=== PATIENT | female | born 1940 | race Caucasian/White ===

== ENCOUNTER 2024-02-03 05:26 | Observation (INO) ==
--- NOTE | 2024-01-29 16:09 | Anesthesiology Consultation ---
Date of Service January 29, 2024 Assessment & Plan (1) Encounter for pre-operative examination: - Infectious disease screening: Per assessment on 01/29/24: No known infectious disease contacts or current infectious disease symptoms. No noted recent Covid positive test result. - Preop testing: No preop EKG received. Will order EKG for DOS. Chart Review Chart Review: Acceptable Risk for Surgery (pending preop EKG DOS) and Patient NOT seen in Pre Admission Testing History Surgery Operation Date: 02/03/24 07:00 Proposed Procedures p Right Breast Mastectomy - DO rafi Ro Right First Stage Immediate Breast Reconstruction with Tissue Mica Builder and Acellular Dermal Matrix - Pilar Pop MD Height/Weight Height: 5 ft 5 in Weight: 64.41 kg Allergies Allergy/AdvReac Type Severity Reaction Status Date / Time Penicillins Allergy Mild Hallucinati Verified 01/21/24 13:13 ng azithromycin AdvReac Mild Gastrointestinal Verified 01/21/24 13:13 Upset ciprofloxacin [From Cipro] AdvReac Mild Gastrointestinal Verified 01/21/24 13:13 Upset clindamycin AdvReac Mild Gastrointestinal Verified 01/21/24 13:13 Upset iohexol [From Omnipaque] AdvReac Mild Gastrointestinal Verified 01/21/24 13:13 Upset Medications Home Medications Medication Instructions Recorded Confirmed Last Taken biotin 1 mg tablet 1 mg PO QAM 12/31/23 01/21/24 Unknown cholecalciferol (vitamin D3) 75 25 mcg PO QAM 12/31/23 01/21/24 Unknown mcg (3,000 unit) tablet coenzyme Q10 75 mg capsule (Ultra 200 mg PO QAM 12/31/23 01/21/24 Unknown CoQ10) glucosamine HCl 500 mg tablet 1,500 mg PO QPM 12/31/23 01/21/24 Unknown simvastatin 20 mg tablet 20 mg PO QPM 12/31/23 01/21/24 Unknown ashwagandha root extract 300 mg 300 mg PO QAM PRN Anxiety 01/20/24 01/21/24 Unknown capsule cephalexin 500 mg capsule 500 mg PO TID 7 days #21 caps 01/20/24 01/20/24 Unknown magnesium 200 mg tablet 400 mg PO QPM 01/20/24 01/21/24 Unknown multivitamin 1 tab PO QAM 01/20/24 01/21/24 Unknown oxycodone-acetaminophen 5 mg-325 1 tab PO Q4H PRN pain 3 days #18 01/20/24 01/20/24 Unknown mg tablet (Percocet) tabs Lactobacillus acidophilus 1,000 mmu cells PO QAM PRN 01/21/24 01/21/24 Unknown Heartburn calcium citrate 100 mg-vit D3 1 tab PO QAM 01/21/24 01/21/24 Unknown 1,000 unit-isoflavonone no2 80 mg tablet cetirizine 10 mg tablet 10 mg PO DAILY PRN allergies 01/21/24 01/21/24 Unknown denosumab 60 mg/mL subcutaneous 60 mg subcut Q6M 01/21/24 01/21/24 09/17/23 syringe (Prolia) promethazine 50 mg tablet 50 mg PO DAILY PRN Motion Sickness 01/21/24 01/21/24 Unknown Past Medical History Medical History DCIS (ductal carcinoma in situ) of breast x3, XRT - 2008, 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 Hyperlipemia Osteopenia Post-nasal drip Past Family History Family History Other Cancer Past Surgical History Surgical History History of appendectomy History of hysterectomy (~1975) Hx of foot surgery Right Hx of lumpectomy Right x2 Nausea and vomiting after administration of anesthetic agent "extremely sick & threw up for days" with previous surgeries Social History Smoking Status: Former smoker Smoking cigarettes per day: 5 cigs/day Smoking End Date: Quit 50 years ago Hx Alcohol Use: No Hx Substance Use: No substance use type: does not use Lab Results Anesthesia Preop Results Results Anesthesia Widget: WBC 7.40 K/ul (4.8-10.8) 01/20/24 Hgb 14.2 g/dl (12.0-16.0) 01/20/24 Hct 42.0 % (37.0-47.0) 01/20/24 Plt 225 K/uL (130-400) 01/20/24 Na 141 mmol/L (136-145) 01/20/24 K 3.9 mmol/L (3.5-5.1) 01/20/24 Cl 108 mmol/L (98-107) H 01/20/24 CO2 26 mmol/L (21-32) 01/20/24 BUN 29 mg/dl (6-23) H 01/20/24 Creat 0.79 mg/dl (0.6-1.2) 01/20/24 Glucose Level 87 mg/dl (70-99(Fasting)) 01/20/24 PT 10.6 Seconds (9.0-12.0) 01/20/24 INR 1.0 (0.9-1.1) 01/20/24
[2024-02-03] MEDS ORDERED: DexMEDEtomidine HCL IV 100 MCG/ML VIAL IV ONE (06:12)
[2024-02-03] MEDS ORDERED: KETAMINE HCL 10MG/ML SYR ONE ×2 (06:12→08:26)
[2024-02-03] MEDS ORDERED: ROCURONIUM BROMIDE 10 MG/ML 5 ML VIAL IV ONE ×3 (06:17→09:54)
[2024-02-03] MEDS ORDERED: PROPOFOL IV EMULSION 10 MG/ML 20 ML VIAL IV ONE ×4 (06:17→10:23)
[2024-02-03] MEDS ORDERED: fentaNYL citrate PF 100 MCG/2 ML VIAL ONE ×2 (06:17→10:19)
[2024-02-03] MEDS ORDERED: ARTIFICIAL TEARS OP OINT 3.5 GM TUBE ONE (06:17)
[2024-02-03] MEDS: LACTATED RINGER'S 1,000 ML IV SCH ×2 (06:32→14:32)
[2024-02-03] MEDS: LR 15ML/HR IV SCH (06:32)
[2024-02-03] MEDS ORDERED: DROPERIDOL 5 MG/2 ML VIAL IV PRN (06:43)
[2024-02-03] MEDS ORDERED: ATROPINE SULFATE 0.1 MG/ML 10ML SYR IV PRN (06:43)
[2024-02-03] MEDS ORDERED: ePHEDrine sulfate 50 MG/ML AMP IV PRN (06:43)
--- NOTE | 2024-02-03 06:48 | History & Physical Report ---
Date of Service February 03, 2024 Assessment & Plan (1) Encounter for breast reconstruction following mastectomy: (2) Ductal carcinoma in situ of right breast: Plan: Patient presents for right breast mastectomy. The consent is reviewed and on the chart. Their have been no changes. History of Present Illness Primary Care Provider: Mago Hawley, DO 83 y/o F who lives and do boys with history of 2 prior DCIS diagnoses within the right breast. The patient is referred to me by medical oncology who saw the patient initially with this new and third diagnosis of DCIS also involving the right breast. She has received radiation in the past. Her last diagnosis of DCIS was 14 years ago. Today Kendra is without any other breast complaints, she does not complain of headaches or bone pain. Detailed HPI: Breast imaging performed at an outside institution, [facility] Screening mammogram 09/18/2023: 2 cm mass and calcification right breast. Ultrasound recommended heterogeneously dense breast. BI-RADS 0. Right diagnostic mammogram, complete ultrasound including axilla 09/23/2023: A sonographic correlate was found to the mammogram identified at 12:00 right breast 1 cm FN showing a mass with indistinct margins and internal vascularity 2.5 cm. And to a previous lumpectomy bed 9 o'clock position right breast scar tissue was identified. Probable complicated cyst was identified at 1 o'clock position 1 cm FN measuring 5 mm. Left breast complicated cyst at 1 o'clock position 1 cm FN measuring 5 mm. Morphologically benign-appearing nonenlarged left and right axillary lymph nodes. Allergies Allergy/AdvReac Type Severity Reaction Status Date / Time Penicillins Allergy Mild Hallucinati Verified 02/03/24 05:58 ng azithromycin AdvReac Mild Gastrointestinal Verified 02/03/24 05:58 Upset ciprofloxacin [From Cipro] AdvReac Mild Gastrointestinal Verified 02/03/24 05:58 Upset clindamycin AdvReac Mild Gastrointestinal Verified 02/03/24 05:58 Upset iohexol [From Omnipaque] AdvReac Mild Gastrointestinal Verified 02/03/24 05:58 Upset Home Medications Medication Instructions Recorded Confirmed Type biotin 1 mg tablet 1 mg PO QAM 12/31/23 02/03/24 History cholecalciferol (vitamin D3) 75 25 mcg PO QAM 12/31/23 02/03/24 History mcg (3,000 unit) tablet coenzyme Q10 75 mg capsule (Ultra 200 mg PO QAM 12/31/23 02/03/24 History CoQ10) glucosamine HCl 500 mg tablet 1,500 mg PO QPM 12/31/23 02/03/24 History simvastatin 20 mg tablet 20 mg PO QPM 12/31/23 02/03/24 History ashwagandha root extract 300 mg 300 mg PO QAM PRN Anxiety 01/20/24 02/03/24 History capsule cephalexin 500 mg capsule 500 mg PO TID 7 days #21 caps 01/20/24 02/03/24 Rx magnesium 200 mg tablet 400 mg PO QPM 01/20/24 02/03/24 History multivitamin 1 tab PO QAM 01/20/24 02/03/24 History oxycodone-acetaminophen 5 mg-325 1 tab PO Q4H PRN pain 3 days #18 01/20/24 02/03/24 Rx mg tablet (Percocet) tabs Lactobacillus acidophilus 1,000 mmu cells PO QAM PRN 01/21/24 02/03/24 History Heartburn calcium citrate 100 mg-vit D3 1 tab PO QAM 01/21/24 02/03/24 History 1,000 unit-isoflavonone no2 80 mg tablet cetirizine 10 mg tablet 10 mg PO DAILY PRN allergies 01/21/24 02/03/24 History denosumab 60 mg/mL subcutaneous 60 mg subcut Q6M 01/21/24 01/21/24 History syringe (Prolia) promethazine 50 mg tablet 50 mg PO DAILY PRN Motion Sickness 01/21/24 02/03/24 History Past Med/Surg History Medical History DCIS (ductal carcinoma in situ) of breast x3, XRT - 2009, No chemo Hyperlipemia Osteopenia Post-nasal drip Surgical History History of appendectomy History of hysterectomy (~1975) Hx of foot surgery Right Hx of lumpectomy Right x2 Nausea and vomiting after administration of anesthetic agent "extremely sick & threw up for days" with previous surgeries Family History Other Cancer Social History (Updated 12/31/23 @ 12:55 by Gi Clay Smoking Status: Former smoker Tobacco Type: Cigarettes Cigarettes Per Day: 5 cigs/day; Smoking End Date: Quit 50 years ago; Second Hand Exposure: No; Tobacco Cessation Education Requested by Patient: No Hx Alcohol Use: No Hx Substance Use: No Preferred Language: Croatian Communication Ability: Effective Hospital Pharmacy Director Required: No Beliefs That Will Affect Care: None Current Living Situation: Alone Other Information That Helps Us Care for You: No Feels Safe at Home: Yes Safety Concerns: Feels Safe At This Time Assistive Devices: None Review of Systems Constitutional: no fever, no chills, no weakness and no anorexia Respiratory: + cough (post nasal drip); no chest jay estion, no snoring and no wheezing Cardiovascular: no chest pain, no lightheadedness, no syncope and no claudication Gastrointestinal: no abdominal pain, no heartburn, no nausea and no vomiting Physical Exam Constitutional: cooperative; not ill appearing, not in distress and not diaphoretic Respiratory: normal respiratory effort; no respiratory distress, no labored breathing and does not use accessory muscles Cardiovascular: Rate/Rhythm: regular rate; not tachycardic Extremities: no calf tenderness and no edema Gastrointestinal (Abdomen): Inspection/Auscultation: abdomen normal to inspection; abdomen not distended Percussion/Palpation: abdomen soft; abdomen nontender Results & Data Results & Data Vital Signs (Past 12 Hours) Vital Signs Temp Pulse Resp BP Pulse Ox O2 Del Method 02/03/24 06:18 36.7 C 85 20 151/85 H 97 Room Air PG Care Time/CCT Total # of Minutes Spent Total Time Spent with Patient: Total time spent is greater than 50% in coordination of care (as documented) at patient's floor/unit and/or counseling patient: Coding Level of Care Code None Diagnoses Encounter for breast reconstruction following mastectomy Z42.1 Ductal carcinoma in situ of right breast D05.11
[2024-02-03] MEDS: SCOPOLAMINE 1 MG TDSY TD SCH (06:55)
--- NOTE | 2024-02-03 07:12 | History & Physical Bridge Note ---
Date of Service February 03, 2024 History & Physical Bridge Note I have examined the patient, reviewed the History & Physical and in the interval since the performance of the History & Physical I have noted the following changes of clinical significance: No changes in medical history. Would like nipple sparing approach. Discussed we can attempt but if the nipple blood supply is compromised or if the mass is to close to skin, we would resect the nipple and consider nipple reconstruction later as main goal is safety and adequate cancer treatment.
[2024-02-03] MEDS: ceFAZolin 2000MG 2,000 MG/15 ML SYR IV SCH ×2 (07:17→18:08)
[2024-02-03] MEDS ORDERED: DEXAMETHASONE SOD INJ 4 MG/ML VIAL ONE ×2 (07:41)
--- NOTE | 2024-02-03 10:03 | Operative Report ---
PG Post Operative Report Pre & Post Diagnosis Operation Date: 02/03/24 07:00 Pre-Op Diagnosis: Right Breast Cancer Post-Op Diagnosis: Right Breast Cancer I identified the patient and participated in the time-out.: Yes Procedure Operation Date: 02/03/24 07:00 Actual Procedures p Right Breast Mastectomy(Right) - Samuel Vitale DO s Right First Stage Immediate Breast Reconstruction with Tissue Shipping Manager and Acellular Dermal Matrix(Right) - Pilar Pop MD Surgeon Samuel Vitale DO Soccer Coach Zoë Chin NP Estimated Blood Loss 10 Findings Consistent with Post-Op Diagnosis Specimens Right breast expected new anterior margin Right breast tissue white stitch anterior, long double stitch axillary tail, short single stitch superior, long single stitch lateral. Anesthesia Type General Complications None Indications Right breast cancer Description of Procedure Preoperatively breasts imaging reports as well and this physical exam of the right breast were reviewed with the plastic surgeon. Incision for the right breast mastectomy was planned out in the preoperative holding area. The patient was brought back to the operating room and placed on the operating room table in supine position. She was connected to cardiac and oxygen monitoring, supplemental O2 was administered. SCDs were applied to bilateral lower extremities. The patient was administered general anesthesia and a secure airway was established. The anterior thorax including bilateral breast were prepped and draped in typical sterile fashion using Betadine prep and the operative site in view. A timeout was conducted. Incision was made in the skin using a 15 blade at the preoperative marking site of the right breast which included excision of the lower outer previous incision line and scar and extended around the inferior periareolar region to the medial aspect of the breast. Skin flaps were elevated in all directions and the mammary tissue was dissected away from the subcutaneous tissue to the usual borders of mastectomy. The mammary and lobular tissue was then dissected posteriorly to the level of the muscle all borders. The mammary tissue including the muscle fascia were then elevated from the underlying muscle. The right breast was marked with a long white stitch over the expected anterior margin of the previously biopsied cancer there was some thickening into the tissues at this location. A short silk single suture was placed at the superior aspect of the specimen, long single silk suture was placed laterally and a double long silk suture was placed at the axillary tail. The subcutaneous tissue just superior to the nipple at the 12:00 region that was anterior to the suspected area of the cancer was sharply excised and sent to pathology for frozen section. A short silk suture was placed superiorly and a long silk suture was placed at the new anterior margin. Pathology confirmed intraoperatively that this area of tissue was negative for carcinoma. The right breast tissue was placed in a labeled container and sent to pathology for further analysis. At this point of the case, plastic surgery took over to complete their final portion of the procedure. The reconstruction part of this procedure can be found in a separately dictated operative report. I attest to the content of the Intraoperative Record and any orders documented therein. Any exceptions are noted below.
[2024-02-03] MEDS ORDERED: ceFAZolin 330 MG/ML 1 GM VIAL ONE ×2 (10:37)
[2024-02-03] MEDS: ceFAZolin 330 MG/ML 1 GM VIAL ONE (11:20)
[2024-02-03] MEDS ORDERED: ONDANSETRON INJ 2 MG/ML 2 ML VIAL ONE (11:24)
[2024-02-03] MEDS: NITROGLYCERIN 2% OINTMENT 30GM TUBE EXT ONE (11:30)
[2024-02-03] MEDS: TRANEXAMIC ACID 1,000 MG **IV Intra-op IV SCH (11:30)
[2024-02-03] MEDS: ceFAZolin 2000MG 2,000 MG/15 ML SYR IV ONE (11:30)
[2024-02-03] MEDS ORDERED: SUGAMMADEX SODIUM 200 MG/2 ML VIAL IV ONE (11:32)
--- NOTE | 2024-02-03 11:51 | Post Operative Brief Note ---
PG Immediate Post Op with CF Date of Surgery February 03, 2024 Pre & Post Diagnosis Operation Date: 02/03/24 07:00 Pre-Op Diagnosis: Right Breast Cancer Post-Op Diagnosis: Right Breast Cancer I identified the patient and participated in the time-out.: Yes Procedure Operation Date: 02/03/24 07:00 Actual Procedures p Right Breast Mastectomy(Right) - DO rafi Ro Right First Stage Immediate Breast Reconstruction with Tissue Chicken Hatchery Helper and Acellular Dermal Matrix(Right) - Pilar Pop MD Surgeon Pilar Pop MD Ux Design Lead Zoë Chin NP Estimated Blood Loss 10 Findings See Below NAC with minimal flow, intermittently pink Specimens Specimen Description: Frozen section A: Right breast tissue, white stitch loera suspected anterior margin cancer, long stitch expected new anterior margin, short stitch superior *sent to Lab at 0919 B: Right breast tissue, double long axillary tail, single short stitch superior, single long stitch lateral, skin anterior margin of previous surgical scar Drains Eliezer-Bolanos Drain Anesthesia Type General
[2024-02-03] MEDS: BUPIVACAINE 0.25% PF 30 ML VIAL ONE (12:21)
[2024-02-03] MEDS: LIDOCAINE 1%/EPINEPHRINE 1:100,000 20 ML VIAL ONE (12:21)
[2024-02-03] MEDS: GENTAMICIN SULFATE 40 MG/ML 2 ML VIAL ONE (12:24)
[2024-02-03] MEDS: fentaNYL citrate PF 100 MCG/2 ML VIAL IV PRN (12:25)
--- NOTE | 2024-02-03 12:32 | Operative Report ---
PG Post Operative Report Pre & Post Diagnosis Operation Date: 02/03/24 07:00 Pre-Op Diagnosis: Right Breast Cancer Post-Op Diagnosis: Right Breast Cancer I identified the patient and participated in the time-out.: Yes Procedure Operation Date: 02/03/24 07:00 Actual Procedures p Right Breast Mastectomy(Right) - Samuel Vitale, s Right First Stage Immediate Breast Reconstruction with Tissue Long Wall Mining Machine Helper and Acellular Dermal Matrix(Right) - Pilar Pop MD Surgeon Pilar Pop MD Jackhammer Operator Zoë Chin NP Estimated Blood Loss 10 Findings See Below Specimens per Dr. Vitale Drains [id number] Anesthesia Type General Complications none Indications right breast DCIS, desiring immediate breast reconstruction after mastectomy Description of Procedure Consent was obtained for for stage immediate breast reconstruction with tissue microsoft exchange administrator and AlloDerm. Off-label use of AlloDerm was explained to the patient. She was identified and marked this morning in the preoperative holding area. She expressed a strong desire for nipple sparing mastectomy. We did discuss that salvage of the nipple areolar complex may not be possible. Further reviewed possible need for return to the operating room. Reviewed that it would be possible to do nipple reconstruction and/or tattooing at a later date. Following this discussion, she did desire to proceed with nipple sparing mastectomy. She was brought to the operating room where she underwent right nipple sparing mastectomy performed by Dr. Albertina Carbajal. Frozen section of the retroareolar tissue was negative. At this point, we began my portion of the procedure. The wound bed was prepped again using Betadine and new drapes were placed. Wound was copiously irrigated with normal saline. Hemostasis was achieved with electrocautery. Pectoralis major muscle was then identified and elevated. Inferior attachments of pectoralis major muscle were divided along the ribs medially to the sternum. None of the sternal attachments were dissected. The retropectoral plane was then developed using electrocautery. Hemostasis was achieved using cautery. Once adequate dissection had been performed, I then chose a piece of medium contour thick AlloDerm which was then used to create a sling for the lower pole. This was first sutured to the inframammary fold using 2-0 Vicryl U stitches. Pocket was then measured and base diameter was 12 cm. Therefore, I selected a Allergan style 133S MVT tissue microsoft exchange administrator with base diameter of 12 cm, fill volume 300 cc. The microsoft exchange administrator was prepared and air was aspirated out. The microsoft exchange administrator was soaked in antibiotic irrigation and antibiotic irrigation was used to irrigate the pocket. All instruments were wiped down and gloves were changed. Long Wall Mining Machine Helper was placed along the inframammary fold as medially as possible. Suture tabs were sutured down to underlying periosteum using a 2-0 Vicryl suture. The remainder of the microsoft exchange administrator was then enclosed using 2-0 Vicryl running suture to reapproximate the AlloDerm which had been trimmed to size and this was approximated to the pectoralis major muscle. Laterally, this was closed down using 2-0 Vicryl interrupted sutures as well. Throughout the procedure, I monitored the perfusion of the nipple-areolar complex. It was intermittently pink and perfused, intermittently somewhat ischemic appearing. Due to the patient's strong desire to maintain a nipple- areolar complex, I did elect to preserve it. While suturing in the AlloDerm, I was able to verify that the nipple areolar complex would in fact rest over top of the pectoralis major muscle, and not AlloDerm. Additionally, I did elect to place Nitropaste on the nipple areolar complex intraoperatively which did appear to augment flow somewhat. A 15-Estonian Bertin drain was placed in the wound and brought out through a separate stab incision. Prior to reapproximating the wound the fill port was identified using the magna-finder and accessed using a Fourte needle. A total of 200 mL were placed prior to closure. I did attempt to place 250 cc, 50 cc were withdrawn as this would change the location of the nipple areolar complex relative to the underlying pectoralis major muscle. 3-0 PDS dermal suture and 3-0 Monocryl running subcuticular suture. Drain was sutured in place using 3-0 nylon. A Berta Amee dressing was applied. The drain site was dressed using Acticoat dry dressing and Tegaderm. Procedure was tolerated well. Pushpa Zuleta PA-C was present and scrubbed throughout the entire procedure and was instrumental in providing exposure during elevation of pectoralis muscle and suturing of the AlloDerm as well as filling the microsoft exchange administrator and assisting in wound closure. I attest to the content of the Intraoperative Record and any orders documented therein. Any exceptions are noted below.
--- NOTE | 2024-02-03 13:24 | Anesthesiology Progress Note ---
Date of Service February 03, 2024 Anesthesia Post Procedure Vital Signs Vital Signs: Temp Pulse Pulse Resp BP Pulse Ox O2 Del Method 02/03/24 13:05 67 19 122/63 93 Room Air 02/03/24 12:55 66 14 123/65 91 Room Air 02/03/24 12:45 68 12 125/56 L 95 Room Air 02/03/24 12:35 67 18 121/67 97 Oxymask 02/03/24 12:25 65 16 132/71 99 Oxymask 02/03/24 12:15 67 16 139/69 98 Oxymask 02/03/24 12:09 36.0 C L 73 16 129/70 98 Oxymask 02/03/24 06:18 36.7 C 85 20 151/85 H 97 Room Air O2 Flow Rate 02/03/24 13:05 02/03/24 12:55 02/03/24 12:45 02/03/24 12:35 3 02/03/24 12:25 3 02/03/24 12:15 5 02/03/24 12:09 7 02/03/24 06:18 Pain Intensity Right Breast: Pain Intensity: 2 Transfer of Care Handoff Completed per policy Notes Mental Status: alert / awake / arousable Patient Amnestic to Procedure: Yes Nausea / Vomiting: adequately controlled Pain: adequately controlled Airway Patency, RR, SpO2: stable & adequate BP & HR: stable & adequate Hydration State: stable & adequate Anesthetic Complications: no major complications apparent
[2024-02-03] MEDS ORDERED: PROMETHAZINE HCL 12.5 MG in SODIUM CHLORIDE 0.9% 50 ML IV PRN (13:50)
[2024-02-03] MEDS ORDERED: MoRPHine SULFATE 2 MG/ML CARP IV PRN (13:50)
[2024-02-03] MEDS ORDERED: oxyCODONE/ACETAMINOPHEN 5mg/325mg TAB PO PRN (13:50)
[2024-02-03] MEDS ORDERED: diphenhydrAMINE Capsule 25 MG CAP PO PRN (13:50)
[2024-02-03] MEDS ORDERED: MoRPHine SULFATE 4 MG/ML 1 ML CARP\\VIAL IV PRN (13:50)
[2024-02-03] MEDS ORDERED: ONDANSETRON INJ 2 MG/ML 2 ML VIAL IV PRN (13:50)
[2024-02-03] MEDS ORDERED: ACETAMINOPHEN 325 MG TAB PO PRN (13:50)
[2024-02-03] MEDS ORDERED: diphenhydrAMINE 50 MG/ML VIAL IV PRN (13:50)
[2024-02-03] MEDS ORDERED: LORazepam 0.5 MG TAB PO PRN (13:50)
--- NOTE | 2024-02-03 13:56 | Electrocardiogram Report ---
Test Reason : Blood Pressure : / mmHG Vent. Rate : 074 BPM Atrial Rate : 074 BPM P-R Int : 182 ms QRS Dur : 084 ms QT Int : 398 ms P-R-T Axes : 028 -01 006 degrees QTc Int : 441 ms Sinus rhythm with occasional Premature ventricular complexes Otherwise normal ECG No previous ECGs available Confirmed by Arjun Gutierrez ([id number]) on 02/03/2024 1:56:21 PM Referred By: Samuel Vitale Confirmed By:Arjun Gutierrez
[2024-02-03] MEDS: TRANEXAMIC ACID 1,000 MG **IV Pre-op IV SCH (14:22)
[2024-02-03] MEDS: ACETAMINOPHEN 1000 MG/100 ML IV IV ONE (14:24)
[2024-02-03] MEDS: CHECK SCOPOLAMINE PATCH PLACEMENT SCH (14:25)
[2024-02-03] MEDS: oxyCODONE/ACETAMINOPHEN 5mg/325mg TAB PO PRN (15:51)
--- NOTE | 2024-02-03 16:58 | Surgery Progress Note ---
Date of Service February 03, 2024 Assessment & Plan (1) Encounter for breast reconstruction following mastectomy: Plan: Everything looks as expected. Discussed that pain is most likely due to division of pectoralis major muscle, suturing of alloderm and ferry hand to periosteum. Reviewed nipple viability and measures taken to try to preserve it given her strong desire to retain the NAC. She understands we will assess when Provena is removed and that there is a significant possibility of nipple necrosis requiring debridement (removal) in the operating room. Tentative plan for discharge in am if she is up to it. Admission and Anticipated Discharge Date Admission Date: February 03, 2024 Subjective s/p right nipple sparing mastectomy with first stage breast reconstruction with tissue ferry hand and alloderm. Reports pain along sternum, doesn't feel like getting out of bed yet Physical Exam Physical Exam: Provena intact to right chest, drain with some serosanguinous drainage Results & Data Vital Signs (Past 12 Hours) Vital Signs Temp Pulse Pulse Resp BP Pulse Ox O2 Del Method 02/03/24 16:24 97.9 F 72 15 132/77 97 Room Air 02/03/24 15:32 97.3 F L 69 16 123/74 96 Nasal Cannula 02/03/24 14:33 97.3 F L 71 16 120/75 94 Room Air 02/03/24 14:05 97.3 F L 67 16 112/72 93 Nasal Cannula 02/03/24 13:31 97.5 F L 61 14 116/76 93 Nasal Cannula 02/03/24 13:05 67 19 122/63 93 Room Air 02/03/24 12:55 66 14 123/65 91 Room Air 02/03/24 12:45 68 12 125/56 L 95 Room Air 02/03/24 12:35 67 18 121/67 97 Oxymask 02/03/24 12:25 65 16 132/71 99 Oxymask 02/03/24 12:15 67 16 139/69 98 Oxymask 02/03/24 12:09 96.8 F L 73 16 129/70 98 Oxymask 02/03/24 06:18 98.1 F 85 20 151/85 H 97 Room Air O2 Flow Rate 02/03/24 16:24 02/03/24 15:32 2 02/03/24 14:33 2 02/03/24 14:05 2 02/03/24 13:31 2 02/03/24 13:05 02/03/24 12:55 02/03/24 12:45 02/03/24 12:35 3 02/03/24 12:25 3 02/03/24 12:15 5 02/03/24 12:09 7 02/03/24 06:18 PG Care Time/CCT Total # of Minutes Spent Total Time Spent with Patient: Total time spent is greater than 50% in coordination of care (as documented) at patient's floor/unit and/or counseling patient: Coding Level of Care Code 86734 Post Operative Follow-Up Diagnoses Encounter for breast reconstruction following mastectomy Z42.1
[2024-02-03] MEDS: SIMVASTATIN 20 MG TAB PO SCH (21:31)
--- NOTE | 2024-02-04 07:26 | Surgery Progress Note ---
Date of Service February 04, 2024 Assessment & Plan (1) Encounter for breast reconstruction following mastectomy: Plan: Kendra is doing well POD#1 from right breast mastectomy and immediate reconstruction. Reviewed that pain is as expected, as reviewed yesterday. We discussed all post-op instructions, including that she must be complaint with her antibiotics, may not shower, and wound vac needs to be charged and working at all times. She will be discharged home this AM. Admission and Anticipated Discharge Date Admission Date: February 03, 2024 Subjective Kendra is resting in bed, still complaining of surgical pain. She is tolerating regular diet, able to void. Physical Exam Physical Exam: wound vac dressing is holding suction. there is 10cc of serosang output in the drain Results & Data Vital Signs (Past 12 Hours) Vital Signs Temp Pulse Pulse Resp BP Pulse Ox O2 Del Method 02/04/24 02:58 36.6 C 67 16 134/68 93 Room Air 02/03/24 23:14 36.6 C 71 18 173/82 H 94 Room Air PG Care Time/CCT Total # of Minutes Spent Total Time Spent with Patient: Total time spent is greater than 50% in coordination of care (as documented) at patient's floor/unit and/or counseling patient: Coding Level of Care Code 38240 Post Operative Follow-Up Diagnoses Encounter for breast reconstruction following mastectomy Z42.1
[2024-02-04] MEDS: MULTIVITAMIN TAB PO SCH (07:58)
--- NOTE | 2024-02-04 10:57 | Surgery Progress Note ---
Date of Service February 04, 2024 Assessment & Plan (1) Encounter for breast reconstruction following mastectomy: Plan: POD#1 R breast mastectomy with reconstruction Pt doing well. will be dispo'd on percocet which should be sufficient wound vac holding good seal dispo instructions reviewed by plastics f/u in the office in 2 weeks (2) Ductal carcinoma in situ of right breast: Admission and Anticipated Discharge Date Admission Date: February 03, 2024 Subjective Patient feeling well. Having some pain, but is manageable with pain meds. To lerating food. No nausea/vomiting. Physical Exam Physical Exam: awake/alert, no distress Respiratory: normal respiratory effort Chest (Breasts): Additional Comments: R sided chest vac in place, holding good suction Results & Data Vital Signs (Past 12 Hours) Vital Signs Temp Pulse Pulse Resp BP Pulse Ox O2 Del Method 02/04/24 07:54 98.6 F 62 16 123/69 94 Room Air 02/04/24 02:58 97.9 F 67 16 134/68 93 Room Air 02/03/24 23:14 97.9 F 71 18 173/82 H 94 Room Air PG Care Time/CCT Total # of Minutes Spent Total Time Spent with Patient: Total time spent is greater than 50% in coordination of care (as documented) at patient's floor/unit and/or counseling patient: Coding Level of Care Code 09079 Post Operative Follow-Up Diagnoses Encounter for breast reconstruction following mastectomy Z42.1 Ductal carcinoma in situ of right breast D05.11
--- NOTE | 2024-02-05 11:19 | Discharge Summary ---
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 The patient is referred to me by medical oncology who saw the patient initially with this new and third diagnosis of DCIS also involving the right breast. She has received radiation in the past. Her last diagnosis of DCIS was 14 years ago. Today Kendra is without any other breast complaints, she does not complain of headaches or bone pain. Detailed HPI: Breast imaging performed at an outside institution, PHD Screening mammogram 09/18/2023: 2 cm mass and calcification right breast. Ultrasound recommended heterogeneously dense breast. BI-RADS 0. Right diagnostic mammogram, complete ultrasound including axilla 09/23/2023: A sonographic correlate was found to the mammogram identified at 12:00 right breast 1 cm FN showing a mass with indistinct margins and internal vascularity 2.5 cm. And to a previous lumpectomy bed 9 o'clock position right breast scar tissue was identified. Probable complicated cyst was identified at 1 o'clock position 1 cm FN measuring 5 mm. Left breast complicated cyst at 1 o'clock position 1 cm FN measuring 5 mm. Morphologically benign-appearing nonenlarged left and right axillary lymph nodes. Principal Diagnosis right breast recurrent breast cancer Discharge Exam wound vac dressing is holding suction. there is 10cc of serosang output in the drain Discharge Data Allergies Allergy/AdvReac Type Severity Reaction Status Date / Time Penicillins Allergy Mild Hallucinati Verified 02/03/24 05:58 ng azithromycin AdvReac Mild Gastrointestinal Verified 02/03/24 05:58 Upset ciprofloxacin [From Cipro] AdvReac Mild Gastrointestinal Verified 02/03/24 05:58 Upset clindamycin AdvReac Mild Gastrointestinal Verified 02/03/24 05:58 Upset iohexol [From Omnipaque] AdvReac Mild Gastrointestinal Verified 02/03/24 05:58 Upset Procedures Performed Operation Date: 02/03/24 07:00 Actual Procedures p Right Breast Mastectomy(Right) - DO rafi Ro Right First Stage Immediate Breast Reconstruction with Tissue Comic Writer and Acellular Dermal Matrix(Right) - Pilar Pop MD Ordered Studies 02/03/24 05:00 US - OR guided needle placemen Routine Hospital Course (1) Encounter for breast reconstruction following mastectomy: Patient presented to [facility] with history of breast cancer. She was taken to the OR and underwent right nipple sparing mastectomy with Dr. Vitale and immediate breast reconstruction using tissue expanders and acellular dermal matrix with Dr. Pop. There were no intraoperative complications. She was taken to recovery and transferred to med/surg for observation. On POD#1, she was feeling well. She was tolerating a regular diet and ambulating. On exam, her vitals were stable. Her incisions were covered with wound vac to suction. Her drain had appropriate output. She was discharged home with instructions to follow-up in the office when drain meets criteria for removal, and at 2 weeks for vac removal Total Time Total Time Spent Total Time Spent (In Minutes): 15 Discharge Plan Discharge Items Patient Disposition: Home - Self-Care Reason For Visit: Right Breast Cancer Discharge Diagnosis: right breast mastectomy with reconstruction Activity: Per Instructions section Non-emergency contact: Surgeon Call non-emergency contact if: you have any medication questions, your pain is not controlled, you have a fever, your temperature is above 101.5, your wound has increased redness, your wound has increased drainage and your wound pain has increased Follow-up/Referrals: Pushpa Zuleta PA-C [Physician [place]] - Samuel Vitale DO [Physician] - 02/18/24 9:30 am (please call to schedule follow up in clinic within 2 weeks ) Mago Hawley DO [Primary Care Provider] - Diet: Regular Addtl Attending Provider Instructions: ACTIVITY RECOMMENDATIONS: __Normal activities _x_No bending, lifting or straining. Right arm must stay at shoulder height or below __No driving __Driving allowed when you are off pain medications _x_Walking permitted __You should have help at home for ___ days DRESSINGS: __No dressings required _x_Keep dressings dry/in place until first office visit. Wound Vac must be charged and holding suction at all times __Remove dressings ___ and leave dressings off __Apply ice ___ days __Remove dressings and reapply garment __Apply antibiotic ointment (Bacitracin, Neosporin, etc) to wounds 3-4 times/day for 10 days BATHING: _x_Keep dressings dry _x_Sponge bathing permitted away from your wound vac. It may not get wet. __Showering permitted _x_No swimming, hot tubs or soaking in a tub MEDICATIONS: Resume previous medications unless instructed otherwise by your surgeon. _x_Do not use aspirin, Motrin, Advil or Ibuprofen as these may promote bleeding. Please use Tylenol. _x_Prescription(s) provided: pain medication and antibiotics were sent to your pharmacy. begin antibiotics today OTHER INSTRUCTIONS: _x_Record drain output 2-3 times per day. Drain is ready for removal when output is 10cc/24 hours SPECIAL CARE INSTRUCTIONS: * It is normal to have a mild fever after surgery. If your temperature is higher than 101.5 degrees F, please call the office at [phone]. * Constipation is a typical side effect of pain medication. An [id number] stool softener will help relieve this. * Leaking around surgical drains may occur and should not cause concern. Sometimes these drains become clogged. If this happens, remove the bulb and milk the clot out of the tube, then replace the bulb. * Drainage from wounds after liposuction is normal and should be expected. Garments will become soiled. You should protect furniture and bedding. This drainage should mostly subside within 2-3 days. Leave garments in place unless instructed to remove them. * If you have unusual drainage from a wound or are concerned you have an infection or have any questions or concerns, please call the office at [phone]. FOLLOW UP VISIT: If not already scheduled, please call the office, , when you return home after surgery to schedule an appointment to be seen in _14__ days. You will also need to be seen with any concerns, and when drains meet criteria for removal. You may be asked at any time by the office to be seen as a vital part of your care. Pending Studies at Discharge: Yes Studies:: surgical pathology Stand-Alone Forms: [facility] Medications and DC Order Prescriptions: Continued simvastatin 20 mg tablet 20 mg PO QPM cholecalciferol (vitamin D3) 75 mcg (3,000 unit) tablet 25 mcg PO QAM Hold Instructions: SURGERY magnesium 200 mg tablet 400 mg PO QPM Hold Instructions: SURGERY\ multivitamin Tablet 1 tab PO QAM Hold Instructions: SURGERY cephalexin 500 mg capsule 500 mg PO TID 7 Days Qty: 21 0RF Rx Instructions: Please begin prescription when discharged home from surgery. oxycodone-acetaminophen [Percocet] 5-325 mg tablet 1 tab PO Q4H PRN (Reason: pain) 3 Days Qty: 18 0RF Rx Instructions: Initial therapy. cetirizine 10 mg Tablet 10 mg PO DAILY PRN (Reason: allergies) promethazine 50 mg Tablet 50 mg PO DAILY PRN (Reason: Motion Sickness) Prolia 60 mg/mL Syringe 60 mg SUBCUT Q6M Discontinued biotin 1 mg tablet 1 mg PO QAM Hold Instructions: SURGERY Ultra CoQ10 75 mg capsule 200 mg PO QAM Hold Instructions: SURGERY glucosamine HCl 500 mg tablet 1,500 mg PO QPM Hold Instructions: SURGERY Rx Instructions: administer with a meal ashwagandha root extract 300 mg capsule 300 mg PO QAM PRN (Reason: Anxiety) Hold Instructions: SURGERY Acidophilus Tablet 1,000 mmu cells PO QAM PRN (Reason: Heartburn) Menopause Relief 100-1,000-80 mg-unit-mg Tablet 1 tab PO QAM Discharge Orders: Discharge Order (Routine); Ordered 02/04/24 Ordered By: Pushpa Zuleta Admission Data Admit Date/Time: 02/03/24 12:12 Attending Provider: Samuel Vitale Admit Provider: Smauel Vitale Primary Care Provider: Mago Hawley Other Interventions: Discharge Summary Assessment (RN) Last Done: 02/04/24 11:53 Coding Level of Care Code 78868 OBS Care - Discharge Diagnoses Encounter for breast reconstruction following mastectomy Z42.1
== END 2024-02-04 11:54 | disposition home or self-care (01) ==
LOC: 3E 05:26 → ASU 05:26 → 3E 19:41

== ENCOUNTER 2024-02-19 09:32 | Observation (INO) ==
--- NOTE | 2024-02-18 08:43 | Anesthesiology Consultation ---
Date of Service February 18, 2024 Assessment & Plan (1) Encounter for pre-operative examination: Chart Review Chart Review: Acceptable Risk for Surgery and Patient NOT seen in Pre Admission Testing -Check CBC with diff DOS (has had breast mastectomy with reconstruction 02/03/24- no repeat labs since that time) Hx of significant PONV -Infectious Disease screening: Per PAT nursing assessment on 02/18/24. No known infectious disease contacts in past 10 days or current infectious disease symptoms. No recent travel outside the country. Right Breast Mastectomy/First Stage Reconstruction 02/03/24= Done under GA with Grade 1 view with Glidescope #3. ETT #7. History Surgery Operation Date: 02/19/24 11:10 Proposed Procedures p Debridement Subcutaneous Tissue Including Epidermis and Dermis - Pilar Pop MD Height/Weight Height: 5 ft 5 in Weight: 64.41 kg Allergies Allergy/AdvReac Type Severity Reaction Status Date / Time Penicillins Allergy Mild Hallucinati Verified 02/18/24 07:38 ng azithromycin AdvReac Mild Gastrointestinal Verified 02/18/24 07:38 Upset ciprofloxacin [From Cipro] AdvReac Mild Gastrointestinal Verified 02/18/24 07:38 Upset clindamycin AdvReac Mild Gastrointestinal Verified 02/18/24 07:38 Upset iohexol [From Omnipaque] AdvReac Mild Gastrointestinal Verified 02/18/24 07:38 Upset Medications Home Medications Medication Instructions Recorded Confirmed Last Taken cholecalciferol (vitamin D3) 75 25 mcg PO QAM 12/31/23 02/18/24 01/20/24 mcg (3,000 unit) tablet simvastatin 20 mg tablet 20 mg PO QPM 12/31/23 02/18/24 02/01/24 22:00 magnesium 200 mg tablet 400 mg PO QPM 01/20/24 02/18/24 01/20/24 multivitamin 1 tab PO QAM 01/20/24 02/18/24 01/20/24 cetirizine 10 mg tablet 10 mg PO DAILY PRN allergies 01/21/24 02/18/24 01/29/24 denosumab 60 mg/mL subcutaneous 60 mg subcut Q6M 01/21/24 02/18/24 09/17/23 syringe (Prolia) promethazine 50 mg tablet 50 mg PO DAILY PRN Motion Sickness 03/11/0302/18/24 08/21/23 acidophilus 100 million 1 cap PO QAM 02/18/24 02/18/24 Unknown cell-pectin, citrus 10 mg capsule Past Medical History Medical History DCIS (ductal carcinoma in situ) of breast x3, XRT - 2009, No chemo Hx of motion sickness Hyperlipemia Osteopenia Post-nasal drip Chronic Past Family History Family History Other Cancer No family history of adverse response to anesthesia Past Surgical History Surgical History H/O right mastectomy (02/07/24) Right Breast Mastectomy(Right) - Samuel Vitale DO History of appendectomy History of hysterectomy (~1975) Hx of foot surgery Right Hx of lumpectomy Right x2 Nausea and vomiting after administration of anesthetic agent "extremely sick & threw up for days" with previous surgeries Social History Smoking Status: Former smoker Smoking cigarettes per day: 5 cigs/day Do You Dip or Chew Tobacco: No Smoking End Date: quit 50 years ago Hx Alcohol Use: No Hx Substance Use: No substance use type: does not use Lab Results Anesthesia Preop Results Results Anesthesia Widget: WBC 7.40 K/ul (4.8-10.8) 01/20/24 Hgb 14.2 g/dl (12.0-16.0) 01/20/24 Hct 42.0 % (37.0-47.0) 01/20/24 Plt 225 K/uL (130-400) 01/20/24 Na 141 mmol/L (136-145) 01/20/24 K 3.9 mmol/L (3.5-5.1) 01/20/24 Cl 108 mmol/L (98-107) H 01/20/24 CO2 26 mmol/L (21-32) 01/20/24 BUN 29 mg/dl (6-23) H 01/20/24 Creat 0.79 mg/dl (0.6-1.2) 01/20/24 Glucose Level 87 mg/dl (70-99(Fasting)) 01/20/24 PT 10.6 Seconds (9.0-12.0) 01/20/24 INR 1.0 (0.9-1.1) 01/20/24 Testing Electrocardiogram Date: 02/03/24 SR with occ PVCs at 74bpm Otherwise normal EKG per cardio
[2024-02-19 10:12] LABS: Basophils # (auto) 0.02 K/uL (0.00-0.20); Basophils % (auto) 0.1 %; Eosinophils # (auto) 0.09 K/uL (0.00-0.50); Eosinophils % (auto) 0.6 %; Hematocrit (blood only) 44.8 % (37.0-47.0); Hemoglobin 14.5 g/dl (12.0-16.0); Immature Granulocytes # (auto) 0.08 K/uL (0.01-0.20); Immature Granulocytes % (auto) 0.6 %; Lymphocytes # (auto) 2.16 K/uL (1.20-3.40); Lymphocytes % (auto) 15.4 %; Mean Corpuscular Hemoglobin 30.5 pg (25.0-34.0); Mean Corpuscular Hgb Conc 32.4 g/dL (32.0-36.0); Mean Corpuscular Volume 94.1 fL (80.0-100.0); Mean Platelet Volume 9.2 fL (9.4-12.4); Monocytes # (auto) 0.66 K/uL (0.11-0.59); Monocytes % (auto) 4.7 %; Neutrophils # (auto) 11.02 K/uL (1.40-6.50); Neutrophils % (auto) 78.6 %; Platelet Count 287 K/uL (130-400); RDW Coefficient of Variation 13.6 % (11.5-14.5); RDW Standard Deviation 46.7 fL (36.4-46.3); Red Blood Count 4.76 M/uL (4.20-5.40); White Blood Count 14.03 K/ul (4.8-10.8)
[2024-02-19] MEDS ORDERED: LIDOCAINE 2% 2 ML VIAL/AMP(20MG/ML) INFIL ONE (10:14)
[2024-02-19] MEDS ORDERED: fentaNYL citrate PF 100 MCG/2 ML VIAL ONE (10:14)
[2024-02-19] MEDS ORDERED: PROPOFOL IV EMULSION 10 MG/ML 20 ML VIAL IV ONE (10:14)
[2024-02-19] MEDS ORDERED: MIDAZOLAM HCL 1 MG/ML 2ML VIAL ONE (10:14)
[2024-02-19] MEDS ORDERED: ONDANSETRON INJ 2 MG/ML 2 ML VIAL ONE (10:14)
[2024-02-19] MEDS ORDERED: ROCURONIUM BROMIDE 10 MG/ML 5 ML VIAL IV ONE (10:14)
[2024-02-19] MEDS ORDERED: SUGAMMADEX SODIUM 200 MG/2 ML VIAL IV ONE (10:15)
[2024-02-19] MEDS: SCOPOLAMINE 1 MG/72 HR TDSY PATCH TD ONE (10:44)
[2024-02-19] MEDS: SCOPOLAMINE 1 MG/72 HR TDSY PATCH TD SCH (10:44)
[2024-02-19] MEDS: LR 15ML/HR IV SCH (10:44)
--- NOTE | 2024-02-19 10:54 | History & Physical Bridge Note ---
Date of Service February 19, 2024 History & Physical Bridge Note I have examined the patient, reviewed the History & Physical and in the interval since the performance of the History & Physical I have noted the following changes of clinical significance: no changes noted
[2024-02-19] MEDS ORDERED: ATROPINE SULFATE 0.1 MG/ML 10ML SYR IV PRN (10:57)
[2024-02-19] MEDS ORDERED: DROPERIDOL 5 MG/2 ML VIAL IV PRN (10:57)
[2024-02-19] MEDS ORDERED: ePHEDrine sulfate 50 MG/ML AMP IV PRN (10:57)
[2024-02-19] MEDS ORDERED: PROPOFOL IV EMULSION 10 MG/ML 100 ML VIAL IV ONE (11:10)
[2024-02-19] MEDS: CLINDA 900 MG **Premixed Bag IV SCH (11:22)
[2024-02-19] MEDS: TRANEXAMIC ACID 1,000 MG **IV Pre-op IV SCH (11:22)
[2024-02-19] MEDS: TRANEXAMIC ACID 1,000 MG **IV Intra-op IV SCH (12:33)
[2024-02-19] MEDS: LIDOCAINE 1%/EPINEPHRINE 1:100,000 20 ML VIAL ONE (12:35)
[2024-02-19] MEDS: BUPIVACAINE 0.25% PF 30 ML VIAL ONE (12:37)
--- NOTE | 2024-02-19 12:50 | Post Operative Brief Note ---
PG Immediate Post Op with CF Date of Surgery February 19, 2024 Pre & Post Diagnosis Operation Date: 02/19/24 11:10 Pre-Op Diagnosis: Ductal Carcinoma of Right Breast, Skin Flap Necrosis Post-Op Diagnosis: Ductal Carcinoma of Right Breast, Skin Flap Necrosis I identified the patient and participated in the time-out.: Yes Procedure Operation Date: 02/19/24 11:10 Actual Procedures p Debridement Subcutaneous Tissue Including Epidermis and Dermis, Removal of tissue box sorter and acellular dermal matrix, placement of wound vac(Right) - Pilar Pop MD Surgeon Pilar Pop MD Tour Production Supervisor Pushpa Zuleta PA-C Estimated Blood Loss 10 Findings Consistent with Post-Op Diagnosis full thickness skin and subcutaneous tissue necrosis of majority of superior flap, some minor necrosis of inferior flap. Alloderm intact and incorporating inferior flap, some serous fluid but no purulence, box sorter intact Specimens Specimen Description: A. Explanted right breast tissue box sorter and explanted right breast acellular dermal matrix B. Debrided Right Breast Tissue Anesthesia Type General Complications none
[2024-02-19] MEDS: ONDANSETRON INJ 2 MG/ML 2 ML VIAL IV PRN (13:20)
[2024-02-19] MEDS: fentaNYL citrate PF 100 MCG/2 ML VIAL IV PRN (13:20)
--- NOTE | 2024-02-19 13:26 | Operative Report ---
PG Post Operative Report Pre & Post Diagnosis Operation Date: 02/19/24 11:10 Pre-Op Diagnosis: Ductal Carcinoma of Right Breast, Skin Flap Necrosis Post-Op Diagnosis: Ductal Carcinoma of Right Breast, Skin Flap Necrosis I identified the patient and participated in the time-out.: Yes Procedure Operation Date: 02/19/24 11:10 Actual Procedures p Debridement Subcutaneous Tissue Including Epidermis and Dermis, Removal of tissue supervisor cutting and boning and acellular dermal matrix, placement of wound vac(Right) - Pilar Pop MD Surgeon Pilar Pop MD Barn Hand Pushpa Zuleta PA-C Estimated Blood Loss 10 Findings Consistent with Post-Op Diagnosis Specimens Necrotic breast skin, tissue supervisor cutting and boning, AlloDerm Anesthesia Type General Complications none Indications Patient is an 83-year-old female who underwent right mastectomy for DCIS with Dr. Albertina Carbajal on February 03 followed by for stage immediate breast reconstruction with tissue supervisor cutting and boning and AlloDerm. Patient was seen for Prevena Amee wound VAC removal and suture removal on February 16 and was noted to have superior mastectomy skin flap necrosis. Given the extent of necrosis, I did discuss with the patient that the reconstruction would not be salvageable and we plan to return to the operating room for debridement of the necrotic mastectomy flap as well as removal of the tissue supervisor cutting and boning. We discussed placement of a wound VAC as I did not feel there would be adequate skin to attempt closure. We did discuss alternate option of possible referral for flap reconstruction, which she has declined at this time Description of Procedure The risk, benefits, and alternatives of procedure explained the patient agreed and signed consent. She was notified and marked in the preoperative holding area. She was brought to the operating where she was positioned supine and placed under general anesthesia without incident. Surgical site was prepped and draped sterilely. A timeout procedure was performed. The area of necrosis was measured and measured 11 x 7 cm. This involved mostly the superior skin flap as well as the nipple areolar complex as well as a small less than 1 cm rim of tissue along the inferior flap. Sutures were incised and the mastectomy wound was reopened. Inferior flap was noted to be largely viable and AlloDerm had begun to incorporate. Superiorly however, was full-thickness necrosis of skin and subcutaneous tissue extending to the corresponding area of demarcation of the skin. I hoped at least a portion of this tissue might be salvageable but unfortunately it did not appear to be. 15 blade scalpel was used to incise along the area of demarcation. Intervening tissue was removed and some of the wound edges did have active bleeding. However, there did appear to be still some additional necrosis along the superior flap and this was further excised using a 15 blade scalpel. Once all edges were healthy and bleeding, I did open up the breast pocket using a scissor to remove the Vicryl sutures. There was a small amount of seroma fluid noted, but without evidence of infection. Sutures were removed from the supervisor cutting and boning tabs and the supervisor cutting and boning was removed intact. AlloDerm was removed as well. 1500 cc of sterile saline were used to pulse lavage the wound. Vashe wound wash was then used to further irrigate the wound. Hemostasis was achieved with electrocautery. There was sufficient retraction of the pectoralis major muscle that I did not feel I could attempt reinsertion of this along the inframammary fold. Postdebridement, the wound measured 12 x 7 cm and all remaining tissue did appear to be viable. A wound VAC was placed. Estimated blood loss 10 cc. Necrotic tissue, tissue supervisor cutting and boning, AlloDerm were sent to pathology. Pushpa Zuleta PA-C served as surgical asst. I attest to the content of the Intraoperative Record and any orders documented therein. Any exceptions are noted below.
--- NOTE | 2024-02-19 14:04 | Anesthesiology Progress Note ---
Date of Service February 19, 2024 Anesthesia Post Procedure Vital Signs Vital Signs: Temp Pulse Pulse Resp BP Pulse Ox O2 Del Method 02/19/24 13:55 36.3 C L 63 12 137/67 94 Nasal Cannula 02/19/24 13:45 36.3 C L 66 18 142/72 H 94 Nasal Cannula 02/19/24 13:35 74 16 157/81 H 94 Nasal Cannula 02/19/24 13:25 68 14 159/79 H 95 Nasal Cannula 02/19/24 13:15 67 18 143/81 H 96 Nasal Cannula 02/19/24 13:05 73 18 149/77 H 99 Nasal Cannula 02/19/24 12:57 36.0 C L 81 22 156/79 H 95 Nasal Cannula 02/19/24 10:09 36.5 C 74 18 153/80 H 96 Room Air O2 Flow Rate 02/19/24 13:55 2 02/19/24 13:45 2 02/19/24 13:35 2 02/19/24 13:25 2 02/19/24 13:15 2 02/19/24 13:05 3 02/19/24 12:57 3 02/19/24 10:09 Pain Intensity Right Chest: Pain Intensity: 3 Transfer of Care Handoff Completed per policy Notes Mental Status: alert / awake / arousable Patient Amnestic to Procedure: Yes Nausea / Vomiting: adequately controlled Pain: adequately controlled Airway Patency, RR, SpO2: stable & adequate BP & HR: stable & adequate Hydration State: stable & adequate Anesthetic Complications: no major complications apparent and Pt Satisfied with anesthetic care
[2024-02-19] MEDS ORDERED: diphenhydrAMINE 50 MG/ML VIAL IV PRN (14:24)
[2024-02-19] MEDS ORDERED: MoRPHine SULFATE 4 MG/ML 1 ML CARP\\VIAL IV PRN (14:24)
[2024-02-19] MEDS ORDERED: MoRPHine SULFATE 2 MG/ML CARP IV PRN (14:24)
[2024-02-19] MEDS ORDERED: ACETAMINOPHEN 325 MG TAB PO PRN (14:24)
[2024-02-19] MEDS ORDERED: oxyCODONE/ACETAMINOPHEN 5mg/325mg TAB PO PRN (14:24)
[2024-02-19] MEDS ORDERED: ONDANSETRON INJ 2 MG/ML 2 ML VIAL IV PRN (14:24)
[2024-02-19] MEDS ORDERED: LORazepam 0.5 MG TAB PO PRN (14:24)
[2024-02-19] MEDS: D5W AND 1/2NSS + 20MEQ KCL 20 MEQ/1,000 ML BAG IV SCH (15:32)
[2024-02-19] MEDS: CHECK SCOPOLAMINE PATCH PLACEMENT SCH (15:32)
[2024-02-19] MEDS: oxyCODONE/ACETAMINOPHEN 5mg/325mg TAB PO PRN (20:19)
[2024-02-19] MEDS: SIMVASTATIN 20 MG TAB PO SCH (20:27)
--- NOTE | 2024-02-20 08:37 | Surgery Progress Note ---
Date of Service February 20, 2024 Assessment & Plan (1) Encounter for breast reconstruction following mastectomy: Plan: Plan is for Kendra to be d/c home today with local wound care follow-up ([facility]). She will be seen intermittently in our office for continued care. Case management has been consulted and is aware of discharge plan. Admission and Anticipated Discharge Date Admission Date: February 19, 2024 Subjective Kendra is resting comfortably. Her pain is well controlled. Vac holding suction. She is tolerating a regular diet. Physical Exam Physical Exam: wound vac to right chest wall holding suction. no erythema of the surrounding soft tissue Results & Data Vital Signs (Past 12 Hours) Vital Signs Temp Pulse Resp BP Pulse Ox O2 Del Method 02/20/24 07:50 36.5 C 76 18 121/56 L 93 Room Air 02/20/24 03:04 36.7 C 63 18 114/49 L Room Air PG Care Time/CCT Total # of Minutes Spent Total Time Spent with Patient: Total time spent is greater than 50% in coordination of care (as documented) at patient's floor/unit and/or counseling patient: Coding Level of Care Code 10057 Post Operative Follow-Up Diagnoses Encounter for breast reconstruction following mastectomy Z42.1
[2024-02-20] MEDS: MULTIVITAMIN TAB PO SCH (08:49)
--- NOTE | 2024-02-21 13:59 | Discharge Summary ---
Date of Service February 21, 2024 Admission HPI Per Admitting Provider History of right breast cancer, s/p right breast mastectomy with Dr. Anselmo Carbajal, and immediate breast reconstruction using tissue application performance engineer with Dr. Pop. At her 2 week post-op visit, Prevena wound vac was removed revealing large area of full thickness tissue necrosis. Admission Exam Per Admitting Provider 11.8 x 6.5 cm area of necrotic skin flap right chest Principal Diagnosis encounter for breast reconstruction following mastectomy, skin necrosis Discharge Exam wound vac to right chest wall holding suction. no erythema of the surrounding soft tissue Discharge Data Allergies Allergy/AdvReac Type Severity Reaction Status Date / Time Penicillins Allergy Mild Hallucinati Verified 02/19/24 10:06 ng azithromycin AdvReac Mild Gastrointestinal Verified 02/19/24 10:06 Upset ciprofloxacin [From Cipro] AdvReac Mild Gastrointestinal Verified 02/19/24 10:06 Upset clindamycin AdvReac Mild Gastrointestinal Verified 02/19/24 10:06 Upset iohexol [From Omnipaque] AdvReac Mild Gastrointestinal Verified 02/19/24 10:06 Upset Procedures Performed Operation Date: 02/19/24 11:10 Actual Procedures p Debridement Subcutaneous Tissue Including Epidermis and Dermis, Removal of tissue application performance engineer and acellular dermal matrix, placement of wound vac(Right) - Pilar Pop MD Ordered Studies 02/19/24 05:00 US - OR guided needle placemen Routine Hospital Course (1) Skin flap necrosis: Patient presented to [facility] with history of breast cancer, s/p right mastectomy by Dr. Vitale with immediate breast reconstruction using tissue expanders and acellular dermal matrix with Dr. Pop. She underwent debridement of necrotic tissue, removal of alloderm and tissue application performance engineer, placement of wound vac. There were no intraoperative complications. She was taken to recovery and transferred to med/surg for observation. On POD#1, she was feeling well. She was tolerating a regular diet and ambulating. On exam, her vitals were stable. Her incisions were CDI. Her wound vac was functioning. Case management and wound care were consulted to facilitate use of home wound vac, follow-up care at her local wound center. She was discharged home with instructions to follow-up in the office in two weeks. (2) Encounter for breast reconstruction following mastectomy: Total Time Total Time Spent Total Time Spent (In Minutes): 20 Discharge Plan Discharge Items Patient Disposition: Home - Home Health Services Reason For Visit: Ductal Carcinoma of Right Breast, Skin Flap Necros Discharge Diagnosis: s/p debridement of necrotic tissue, removal of alloderm and tissue application performance engineer, placement of wound vac Activity: As commented below Bathing Comment: v Non-emergency contact: Surgeon Call non-emergency contact if: you have any medication questions, your pain is not controlled, you have a fever, your wound has increased redness and your wound has increased drainage Follow-up/Referrals: Pushpa Zuleta PA-C [Physician [employer]] - 03/02/24 11:30 am Mago Hawley DO [Primary Care Provider] - Diet: Regular Addtl Attending Provider Instructions: ACTIVITY RECOMMENDATIONS: __Normal activities _x_No bending, lifting or straining. Minimize reaching your right arm above shoulder height __No driving __Driving allowed when you are off pain medications _x_Walking permitted __You should have help at home for ___ days DRESSINGS: _x_No dressings required. Wound vac to suction __Keep dressings dry/in place until first office visit __Remove dressings ___ and leave dressings off __Apply ice ___ days __Remove dressings and reapply garment __Apply antibiotic ointment (Bacitracin, Neosporin, etc) to wounds 3-4 times/day for 10 days BATHING: _x_Keep dressings dry _x_Sponge bathing permitted __Showering permitted _x_No swimming, hot tubs or soaking in a tub MEDICATIONS: Resume previous medications unless instructed otherwise by your surgeon. _x_Do not use aspirin, Motrin, Advil or Ibuprofen as these may promote bleeding. Please use Tylenol. _x_Prescription(s) provided: pain medication was previously prescribed. Please call office if you require refill. OTHER INSTRUCTIONS: __Record drain output 2-3 times per day SPECIAL CARE INSTRUCTIONS: * It is normal to have a mild fever after surgery. If your temperature is higher than 101.5 degrees F, please call the office at [phone]. * Constipation is a typical side effect of pain medication. An [id number] stool softener will help relieve this. * Leaking around surgical drains may occur and should not cause concern. Sometimes these drains become clogged. If this happens, remove the bulb and milk the clot out of the tube, then replace the bulb. * Drainage from wounds after liposuction is normal and should be expected. Garments will become soiled. You should protect furniture and bedding. This drainage should mostly subside within 2-3 days. Leave garments in place unless instructed to remove them. * If you have unusual drainage from a wound or are concerned you have an infection or have any questions or concerns, please call the office at [phone]. FOLLOW UP VISIT: If not already scheduled, please call the office, , when you return home after surgery to schedule an appointment to be seen in _14__ days. Pending Studies at Discharge: Yes Stand-Alone Forms: [facility], Sm[facility] Cess[facility] Medications and DC Order Prescriptions: Continued simvastatin 20 mg tablet 20 mg PO QPM cholecalciferol (vitamin D3) 75 mcg (3,000 unit) tablet 25 mcg PO QAM Hold Instructions: SURGERY magnesium 200 mg tablet 400 mg PO QPM Hold Instructions: SURGERY\ multivitamin Tablet 1 tab PO QAM Hold Instructions: SURGERY cetirizine [Zyrtec] 10 mg Tablet 10 mg PO DAILY PRN (Reason: allergies) promethazine 50 mg Tablet 50 mg PO DAILY PRN (Reason: Motion Sickness) Prolia 60 mg/mL Syringe 60 mg SUBCUT Q6M acidophilus-pectin, citrus 100 million cell-10 mg Capsule 1 cap PO QAM Admission Data Admit Date/Time: 02/19/24 12:59 Attending Provider: Pilar Pop Admit Provider: Pilar Pop Primary Care Provider: Mago Hawley Other Interventions: Discharge Summary Assessment (RN) Last Done: 02/20/24 14:12 Coding Level of Care Code 10759 OBS Care - Discharge Diagnoses Skin flap necrosis T86.828; I96 Encounter for breast reconstruction following mastectomy Z42.1
== END 2024-02-20 15:27 | disposition home health service (06) ==
LOC: 3W 09:32 → ASU 09:32